=== PATIENT | male | born 1940 | race Caucasian/White ===

== ENCOUNTER → 2016-11-10 | Outpatient (CLI) | payer MEDICARE, MEDICAID ==
[~2016-11-10] MED LIST: ADDE10 PO; ALPR.5 PO
[2016-11-10 12:01] LABS: HDL CHOLESTEROL 88.7 MG/DL (40.0-60.0); INDIRECT BILIRUBIN 0.3 MG/DL (0.0-0.8); TOTAL BILIRUBIN ADULT 0.4 MG/DL (0.2-1.0)
== END ==
LOC: CLAB 11:02
PROVIDERS: ATTEND Internal Medicine Cardiovascular Disease
DX: Z79.899 Other long term (current) drug therapy (principal)
CPT/HCPCS: 36415; 80061; 80076

== ENCOUNTER 2017-04-18 08:46 | Emergency (ER) | payer MEDICAID, MEDICARE ==
[~2017-04-18] VITALS: Ht 170.2 cm; Wt 45.0 kg
[2017-04-18 08:49] VITALS: BP 99/61; PULSE 100; RESP 20; TEMP 98.1; O2SAT 96
--- NOTE | 2017-04-18 09:53 | PD ---
HPI Chief Complaint: Hip Injury Time Seen by Provider: 09:47 Travel History International Travel<30 days: No Contact w/Intl Traveler<30days: No Traveled to known affect area: No History of Present Illness HPI This patient complains of left hip pain. 2 days ago he tripped and fell and landed on the left hip. Complains of pain in that area. Severity is moderate. He is ambulatory. No alleviating factors. Duration 2 days PFSH Past Medical History Anxiety: Yes Chest Pain: Yes Diabetes: No Diminished Hearing: No Genitourinary: Yes (UTI'S) Musculoskeletal: Yes (BACK INJURY) Immunizations Current: Yes Tetanus Vaccination: Unknown Influenza Vaccination: No Past Surgical History Abdominal Surgery: Yes (HERNIA REPAIR X 6) Genitourinary Surgery: Yes (BLADDER STONES REMOVED) Social History Alcohol Use: Yes (OCC) Tobacco Use: Yes (<1 PPD, since age 37) Substance Use: No Allergies-Medications (Allergen,Severity, Reaction): Coded Allergies: No Known Allergies (Verified , 04/18/17) Reported Meds & Prescriptions Reported Meds & Active Scripts Active Xanax (Alprazolam) 0.5 Mg Tab 0.5 Mg PO HS PRN Review of Systems General / Constitutional: No: Fever Eyes: No: Visual changes HENT: No: Headaches Cardiovascular: No: Chest Pain or Discomfort Respiratory: No: Shortness of Breath Gastrointestinal: No: Abdominal Pain Genitourinary: No: Dysuria Musculoskeletal: Positive: Arthralgias, Pain Skin: No Rash Neurologic: No: Weakness Psychiatric: No: Depression Endocrine: No: Polydipsia Hematologic/Lymphatic: No: Easy Bruising Physical Exam Narrative GENERAL: Well-nourished, well-developed patient in no apparent distress. SKIN: Focused skin assessment reveals no rash and nodules. Skin is Warm and dry. HEAD: Atraumatic. Normocephalic. EYES: Pupils equal and round. No scleral icterus. No injection or drainage. ENT: No nasal bleeding or discharge. Mucous membranes pink and moist. NECK: Trachea midline. No JVD. CARDIOVASCULAR: Regular rate and rhythm. No murmur appreciated. RESPIRATORY: No accessory muscle use. Clear to auscultation. Breath sounds equal bilaterally. GASTROINTESTINAL: Abdomen soft, non-tender, nondistended. Hepatic and splenic margins not palpable. MUSCULOSKELETAL: No obvious deformities. No clubbing. No cyanosis. No edema. Left hip rolls well without producing symptoms. Palpation of the left buttock area produces pain. No bruising seen. No swelling or deformity. NEUROLOGICAL: Awake and alert. No obvious cranial nerve deficits. Motor grossly within normal limits. Normal speech. PSYCHIATRIC: Appropriate mood and affect; insight and judgment normal. Data Data Last Documented VS Vital Signs Date Time Temp Pulse Resp B/P Pulse Ox O2 Delivery O2 Flow Rate FiO2 04/18/17 08:49 98.1 100 20 99/61 96 Room Air Orders Hip, Lat Only W Ap Pelvis (04/18/17 ) MDM Medical Decision Making Medical Screen Exam Complete: Yes Emergency Medical Condition: Yes Medical Record Reviewed: Yes Differential Diagnosis Pelvic fracture, contusion, hip dislocation Narrative Course I have reviewed the patient's electronic medical record. I reviewed his pelvis x-ray which is normal I reviewed his left hip x-ray which is normal Patient has left hip contusion but no fracture Stable for outpatient follow-up I am expecting gradual resolution of his symptoms Blood pressures on the low side but stable and he is ambulatory without presyncopal symptoms Diagnosis Primary Impression: Contusion of left hip, initial encounter Additional Instructions: The patient was advised to follow up with their physician and return if they worsen. Med/Other Pt SpecificInfo: Other Disposition: 01 DISCHARGE HOME Condition: Stable Nuno Raphael MD Apr 18, 2017 09:53
--- NOTE | 2017-04-18 10:45 | RADRPT ---
EXAM DATE/TIME: 04/18/2017 10:32 [facility] COMPARISON: No previous studies available for comparison. INDICATIONS : Left hip pain post fall Tuesday. MEDICAL HISTORY : None. SURGICAL HISTORY : None. ENCOUNTER: Initial ACUITY: 2 days PAIN SCORE: 7/10 LOCATION: Left hip FINDINGS: A lateral view of the left hip with AP pelvis was obtained. No definite fractures, dislocations, lyt ic or sclerotic lesions are seen. The joint space is well maintained. CONCLUSION: No acute disease. Daniele Salamanca MD on April 18, 2017 at 10:43 Board Certified Radiologist. This report was verified electronically.
== END 2017-04-18 11:48 | disposition home or self-care (01) ==
LOC: NEPD 08:46
DX: S70.02XA Contusion of left hip, initial encounter (principal); W01.0XXA Fall on same level from slipping, tripping and stumbling without subsequent striking against object, initial encounter
CPT/HCPCS: 73501; 99283

== ENCOUNTER 2017-05-19 20:47 | Emergency (ER) | payer MEDICARE ==
[~2017-05-19 20:47] MED LIST changes: -ADDE10 PO
[2017-05-19 20:49] VITALS: BP 122/90; PULSE 95; RESP 18; TEMP 98.3; O2SAT 95
== END 2017-05-19 22:25 | disposition left against medical advice (07) ==
LOC: NED 20:47
DX: Z03.89 Encounter for observation for other suspected diseases and conditions ruled out (principal)
CPT/HCPCS: 99281